=== PATIENT | male | born 1960 | race African-American/Black ===

== ENCOUNTER 2017-08-03 17:18 | Emergency (ER) | payer BC ==
[~2017-08-03] VITALS: Ht 170.2 cm; Wt 80.0 kg
[~2017-08-03 17:18] MED LIST: ADULT ASPIRIN R81 MG PO; CRESTOR10 MG PO; ELLZIA PAK1 EACH TP; K-DUR20 MEQ PO; NORVASC10 MG PO; ONDANSETRON HCL4 MG PO; PERCOCET 5/31 TABLET PO; VALSARTAN320 MG PO; VALTREX1000 MG PO
[2017-08-03 18:22] LABS: APPEARANCE CLEAR ((CLEAR)); BILIRUBIN NEGATIVE; BLOOD SMALL; COLOR YELLOW ((YELLOW)); GLUCOSE (STRIP) NEGATIVE; KETONES NEGATIVE; LEUKOCYTES NEGATIVE; NITRITE NEGATIVE; PROTEIN (STRIP) 30
[2017-08-03 18:34] LABS: BACTERIA NONE SEEN /HPF; EPITHELIAL CELLS RARE /HPF; MUCUS NONE SEEN /LPF; RED BLOOD CELLS 0-5 /HPF (0-5); UCUL ADDED? NO; WHITE BLOOD CELLS 0-5 /HPF (0-5)
[2017-08-03 18:56] LABS: HEMATOCRIT 30.8 % (38.0-50.0); HEMOGLOBIN 10.6 G/DL (12.5-16.6); MCH 29.1 PG (29.0-34.0); MCHC 34.4 G/DL (30.0-36.0); MCV 84.6 FL (86-99); PLATELET COUNT 211 K/uL (156-360); RBC DIS.WIDTH-CV 12.4 % (11.8-14.6); RBC DIS.WIDTH-SD 37.9 % (39-53); RED BLOOD COUNT 3.64 M/uL (4.00-5.50)
[2017-08-03 19:05] LABS: ALBUMIN 3.6 g/dL (3.2-4.8)
[2017-08-03 19:06] LABS: CHLORIDE 103 mEq/L (99-109); SODIUM 141 mEq/L (136-147)
[2017-08-03 19:08] LABS: GLUCOSE 87 mg/dL (70-99); TOTAL PROTEIN 6.9 g/dL (6.4-8.3)
[2017-08-03 19:10] LABS: TOTAL BILIRUBIN 1.1 mg/dL (0.0-1.0)
[2017-08-03 19:11] LABS: ALKALINE PHOSPHATASE 77 IU/L (3-129)
[2017-08-03 19:12] LABS: GFR ESTIMATE (CALCULATED) > 59 mL/min/ (58.99-99999)
[2017-08-03 19:13] LABS: AST (GOT) 20 IU/L (2-34); UREA NITROGEN (BUN) 10 mg/dL (9-23)
[2017-08-03 19:14] LABS: ALT (GPT) 15 IU/L (3-49)
[2017-08-03] MEDS ORDERED: PERCOCET 5/31 TABLET PO (21:04)
[2017-08-03 21:27] VITALS: BP 140/74
== END 2017-08-03 21:29 | disposition home or self-care (01) ==
LOC: EME 17:18
DX: R10.9 Unspecified abdominal pain (principal); R11.0 Nausea; M79.89 Other specified soft tissue disorders; C85.90 Non-Hodgkin lymphoma, unspecified, unspecified site; Z92.21 Personal history of antineoplastic chemotherapy; I10 Essential (primary) hypertension; E78.5 Hyperlipidemia, unspecified; Z79.82 Long term (current) use of aspirin
CPT/HCPCS: 80053; 81003; 85027; 99281; 99284